=== PATIENT | female | born 1990 | race Caucasian/White ===

== ENCOUNTER 2024-11-27 14:37 | Outpatient (REF) | payer OTHER, SELFPAY ==
[2024-11-27 18:32] LABS: Parathyroid Hormone Intact 56.3 pg/mL (8.7-77.1)
[2024-12-03 13:09] LABS: Calcium, Ionized 5.0 mg/dL (4.7-5.5)
== END 2024-11-27 14:38 | disposition home or self-care (01) ==
LOC: HO.WFDLDS 14:37
PROVIDERS: Visit Provider Physician Assistant
DX: Z00.00 Encounter for general adult medical examination without abnormal findings (principal); E03.9 Hypothyroidism, unspecified; E83.51 Hypocalcemia; Z13.6 Encounter for screening for cardiovascular disorders
CPT/HCPCS: 36415; 82306; 82330; 83970

== ENCOUNTER 2024-12-03 09:25 | Outpatient (REF) | payer OTHER, SELFPAY ==
--- NOTE | ~2024-12-03 | FL_ITS ---
EXAMINATION: XR BARIUM SWALLOW CLINICAL INFORMATION: Dysphonia, swelling, mass and lump right side of the neck history of Patricia's disease. COMPARISON: None available. TECHNIQUE: Routine upright barium swallow with thick barium and saltine crackers with barium paste was performed. Thin barium was administered in prone lying position. FINDINGS: On oral administration of thick barium in upright views there is normal propagation bolus from the oral cavity through the pharynx, esophagus into stomach. On magnification views and mild wall maneuver the pharynx is distended with no intraluminal filling defect seen within the pharyngeal spaces. Following oral administration of saltine crackers with there are pacer is normal oral mastication and with antegrade propagation of bolus from the oral cavity through the pharynx, esophagus into stomach. No intraluminal filling defect, narrowing or extrinsic compression seen. On placing patient in prone lying and oral administration of thin barium there is good distention of entire esophagus without any obstruction or narrowing. FLUOROSCOPY TIME: 1 minute 37 seconds DOSE AREA PRODUCT: 436 uGy-m2 (microgray-meter squared) FL/FL barium swallow IMPRESSION: Unremarkable barium swallow examination. Electronically signed by: Aubrey Raines MD 12/03/2024 02:15 PM EDT
== END 2024-12-03 09:26 | disposition home or self-care (01) ==
LOC: HO.XRAY 09:25
DX: R49.0 Dysphonia (principal); R22.1 Localized swelling, mass and lump, neck; Z86.39 Personal history of other endocrine, nutritional and metabolic disease
CPT/HCPCS: 74220

== ENCOUNTER → 2024-12-03 09:27 | Outpatient (BNV) | payer OTHER, SELFPAY | PROVIDERS: Visit Provider Radiology Diagnostic Radiology | DX: R49.0 Dysphonia (principal) | CPT/HCPCS: 74246 ==

== ENCOUNTER 2025-01-14 13:06 | Outpatient (REF) | payer OTHER, SELFPAY ==
--- NOTE | ~2025-01-14 | US_ITS ---
EXAMINATION: US THYROID CLINICAL INFORMATION: LUMP SENSATION RT THROAT. COMPARISON: None available. TECHNIQUE: Linear transducer alvarez-scale and color Doppler examination with attention to the region of the thyroid. FINDINGS: Right Thyroid Lobe: 4.9 x 1.5 x 2.3 cm, volume 8.9 mL. Left Thyroid Lobe: 5.2 x 1.2 x 2.1 cm, volume 7.4 mL. Isthmus: 0.6 cm in maximum AP dimension. PARENCHYMA: The gland echotexture is heterogeneous. Thyroid vascularity is increased. RIGHT THYROID LOBE: No nodules. ISTHMUS: No nodules. LEFT THYROID LOBE: No nodules. NODES: No lymphadenopathy is seen in the tissue surrounding the thyroid gland. US/US soft tiss head and/or neck IMPRESSION: Heterogeneous thyroid gland associated with increased vascularity. Electronically signed by: Andreea Mary MD 01/14/2025 03:23 PM EDT
== END 2025-01-14 13:07 | disposition home or self-care (01) ==
LOC: HO.HMGCX 13:06
PROVIDERS: PCP Physician Assistant
DX: R49.0 Dysphonia (principal); R22.1 Localized swelling, mass and lump, neck
CPT/HCPCS: 76536

== ENCOUNTER → 2025-01-14 13:14 | Outpatient (BNV) | payer OTHER, SELFPAY | PROVIDERS: PCP Physician Assistant; Visit Provider Radiology Body Imaging | DX: E07.89 Other specified disorders of thyroid (principal); R09.A2 Foreign body sensation, throat | CPT/HCPCS: 76536 ==

== ENCOUNTER 2025-04-09 08:59 | Outpatient (AMB) | payer OTHER, SELFPAY ==
--- NOTE | 2025-04-09 09:01 | MHC.PC.OV ---
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 She has a hx of hypothyroid Endo: has hashimotos and was treated following the delivery of her 3-year-old son. She has a 3-year-old, soon to be 4-year-old in May and a 1-1/2-year-old daughter. On levothyroxine 50 mcg daily. CV: does get occasional lightheadedness associated with bradycardia. She states that for the last few months she has noticed that she gets lightheaded and it will last about 20 minutes. 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 This coincides with the feeling of being lightheaded and weak. She does have to sit down and rest with this. No family history of heart disease. She states that the symptoms do not appear to be triggered by anything in particular. She states it happens randomly and it does seem to happen a few times a month. No headaches, vision changes or syncope. No chest pain or palpitations. Neuro: Gets intermittent paresthesias in her hands and feet that get better with position changes. She just wants to make sure it is not anything. Denies any persistent numbness, tingling or weakness. No pain in the joints or neck or spine. She states she notices it if she is in a certain position and then if she moves the symptoms go away very quickly. No skin changes with this. Supervisor Extrusion: [facility], [facility] Fam hx: father had t2dm, htn, dementia, hld. Mother hld, etoh abuse hx, adhd, hypothyroid. Sisters hld. Maternal grandmother had breast ca. [facility] Family History (Updated 04/09/25 @ 09:07 by Shantel [facility]) Father Dementia Mother ADHD Alcoholism Other FH: mental illness Substance abuse Social History Housing: House Patient Tobacco Use Status: Never used Tobacco e-Cigarette/Vaping Use: Never Used Second Hand Smoke Exposure: No service: No Current occupational status: employed Current occupation: Nurse Current occupational exposures/hazards: No Cognitive needs: No Hearing needs: No Vision needs: No Questionnaire PHQ-9 Over the last 2 weeks, how often have you been bothered by any of the following problems? 1. Little interest or pleasure in doing things: not at all 2. Feeling down, depressed, or hopeless: not at all 3. Trouble falling or staying asleep, or sleeping too much: not at all 4. Feeling tired or having little energy: several days 5. Poor appetite or overeating: not at all 6. Feeling bad about yourself - or that you are a failure or have let yourself or your family down: not at all 7. Trouble concentrating on things, such as reading the newspaper or watching television: not at all 8. Moving or speaking so slowly that other people could have noticed. Or the opposite - being so fidgety or restless that you have been moving around a lot more than usual: not at all 9. Thoughts that you would be better off or of hurting yourself in some way: not at all Total score: 1 Depression Screening Interpretation: Negative Depression Screening Done: Yes 25852 - PHQ-9 Billing: Yes Source: Developed by Drs. Vinicius Jason, Ada Whitlock, Luis Rebolledo and colleagues, with an educational sanya from [employer]. Thrive Questionnaire I am a: Patient What is your living situation today?: I have a steady place to live Within the past 12 months, did the food you bought not last and you didn't have the money to get more?: Never true Within the past 12 months, did you worry whether your food would run out before you got money to buy more?: Never true Do you have trouble paying for medicines?: No Do you have trouble getting transportation to medical appointments?: No Do you have trouble paying your heating and electricity bill?: No Do you have trouble taking care of your child, family member or friend?: No Do you have trouble with day-to-day activities such as bathing, preparing meals, shopping, managing finances, etc.?: No Are you currently unemployed and looking for a job?: No Are you interested in more education?: No Please select the resources that you would like help with: None Currently or been in a relationship where the following occur: No concerns reported THRIVE Score: 0 AUDIT C Alcohol Use Questionnaire (AUDIT-C) 1. How often do you have a drink containing alcohol?: Monthly or less 2. How many drinks containing alcohol do you have on a typical day when you are drinking?: 1 or 2 3. How often do you have six or more drinks on one occasion?: Never Total Score: 1 ARNOL-7 AMB Questionnaire ARNOL-7 Feeling nervous, anxious, or on edge: 0 = Not at all Not being able to stop or control worryin = Not at all Worrying too much about different things: 0 = Not at all Trouble relaxin = Not at all Being so restless that it is hard to sit still: 0 = Not at all Becoming easily annoyed or irritable: 0 = Not at all Feeling afraid as if something awful might happen: 0 = Not at all Total ARNOL-7 score (0-4 normal; 5-9 mild; 10-14 moderate; 15-21 severe): 0 Source: Developed by Drs. Vinicius Jason, Ada Whitlock, Luis Rebolledo and colleagues, with an educational sanya from [employer]. Physical exam (Primary Care) Vital Signs: Last Vital Signs Temp 98.4 F 04/09/25 09:05 Pulse 87 04/09/25 09:05 Resp 14 04/09/25 09:05 BP 112/68 04/09/25 09:05 Pulse Ox 99 04/09/25 09:05 Oxygen Delivery Method Room Air 04/09/25 09:05 BMI result Body Mass Index 26.4 Tobacco/Smoking Status: Tobacco use Status Tobacco use date assessed 04/09/25 04/09/25 09:10 Patient Tobacco Use Status Never used Tobacco 04/09/25 09:10 e-Cigarette/Vaping Use Never Used 04/09/25 09:10 PHQ-9: PHQ-9 Score PHQ-9: Total score 1 04/09/25 09:29 Depression Screening Interpretation: Negative Currently or been in a relationship where the following occur: No concerns reported Const Orientation/consciousness: patient oriented x3 HENMT Ears: hearing grossly normal bilaterally General nose exam: No nasal polyps present Face and sinus: Yes sinuses nontender Mouth: Normal oral and palatal mucosa present Eyes Pupils: Equal, round and reactive pupils present EOM: EOMs intact bilaterally Neck Neck: Yes full ROM and Yes no lymphadenopathy Thyroid: Thyroid normal Lymphatic: no lymphadenopathy noted Chest Chest palpation & inspection: normal inspection of the chest Resp Auscultation: clear to auscultation bilaterally Cardio Rate: regular rate Rhythm: regular rhythm Heart sounds: S1 normal heart sound present and S2 normal heart sound present Peripheral pulses: Peripheral pulses 2+ throughout GI Other: Soft, nontender Inspection: Yes normal to inspection Palpation (GI): Soft to palpation and Other GI palpation findings present (nontender, no cva tenderness) Auscultation: normoactive bowel sounds Rectal Exam - Female: deferred General: Yes no CVA tenderness Back/Spine/Pelvis Other: Nontender Back: no CVA tenderness Skin General skin exam: no rashes or lesions noted Neuro General: patient oriented x3, gait normal and no focal motor deficits Cranial nerves: Yes Equal, round and reactive pupils present Motor exam (neuro): 5/5 motor strength present throughout Sensory Exam: double simultaneous stimulation for sensation normal Coordination: [id number] test normal and Romberg test negative Extrem General: Yes normal to inspection and Yes full ROM Psych Affect: normal affect Attitude: cooperative Thought process: Normal thought process present Thought content: Normal thought content present Insight: Good insight present (Psych) Judgement: Good judgement present (Psych) Office Procedures EKG Details: EKG today is sinus bradycardia at a rate of 56 beats per minute with nonspecific STT wave abnormalities. No prior study to compare. EKG interpreted myself and Dr. Truong. [id number], Complete Coding Level of Care Code New Pt Level 3 (51822) New Pt Prev Care 18-39yr(27428 Diagnoses Routine general medical examination at health care facility Z00.00 Paresthesias R20.2 Lightheadedness R42 Bradycardia R00.1 Hypothyroid E03.9 CPT Codes EKG - CPT: 87995-[id number], Complete ([id number]) Additional Codes PHQ-9 - 97996 - PHQ-9 Billing: Yes ([id number]) Assessment & Plan Assessment & Plan (1) Routine general medical examination at [facility] care facility: Code(s): Z00.00 - Encounter for general adult medical examination without abnormal findings Plan: reviewed labs ordered f.u in a few months (2) Paresthesias: Code(s): R20.2 - Paresthesia of skin Category: Medical Plan: Patient does appear neurovascularly intact. (3) Lightheadedness: Code(s): R42 - Dizziness and giddiness Category: Medical Plan: Labs ordered Monitor ordered Echo ordered (4) Bradycardia: Code(s): R00.1 - Bradycardia, unspecified Category: Medical Plan: As above (5) Hypothyroid: Code(s): E03.9 - Hypothyroidism, unspecified Category: Medical Plan: tsh ordered continue levothyroxine Orders: Orders Lipid Panel Today R00.1 - Bradycardia, unspecified, R20.2 - Paresthesia of skin, R42 - Dizziness and giddiness, Z00.00 - Encounter for general adult medical examination without abnormal findings, Z01.89 - Encounter for other specified special examinations TSH reflex Free T4 Today R00.1 - Bradycardia, unspecified, R20.2 - Paresthesia of skin, R42 - Dizziness and giddiness, Z00.00 - Encounter for general adult medical examination without abnormal findings, Z01.89 - Encounter for other specified special examinations Microalbumin, Random (w Creat) Today R00.1 - Bradycardia, unspecified, R20.2 - Paresthesia of skin, R42 - Dizziness and giddiness, Z00.00 - Encounter for general adult medical examination without abnormal findings, Z01.89 - Encounter for other specified special examinations Magnesium Today R00.1 - Bradycardia, unspecified, R20.2 - Paresthesia of skin, R42 - Dizziness and giddiness, Z00.00 - Encounter for general adult medical examination without abnormal findings, Z01.89 - Encounter for other specified special examinations Hemoglobin A1c Today R00.1 - Bradycardia, unspecified, R20.2 - Paresthesia of skin, R42 - Dizziness and giddiness, R73.01 - Impaired fasting glucose, Z00.00 - Encounter for general adult medical examination without abnormal findings, Z01.89 - Encounter for other specified special examinations IRON PROFILE Today R00.1 - Bradycardia, unspecified, R20.2 - Paresthesia of skin, R42 - Dizziness and giddiness, Z00.00 - Encounter for general adult medical examination without abnormal findings, Z01.89 - Encounter for other specified special examinations AMB EKG-In Office Today R00.1 - Bradycardia, unspecified, R42 - Dizziness and giddiness Complete Blood Count Auto Diff Today R00.1 - Bradycardia, unspecified, R20.2 - Paresthesia of skin, R42 - Dizziness and giddiness, Z00.00 - Encounter for general adult medical examination without abnormal findings, Z01.89 - Encounter for other specified special examinations Comprehensive Mabie. Panel Fast Today R00.1 - Bradycardia, unspecified, R20.2 - Paresthesia of skin, R42 - Dizziness and giddiness, Z00.00 - Encounter for general adult medical examination without abnormal findings, Z01.89 - Encounter for other specified special examinations UA CC w/rflx Micro + Cult Today R00.1 - Bradycardia, unspecified, R20.2 - Paresthesia of skin, R30.0 - Dysuria, R42 - Dizziness and giddiness, Z00.00 - Encounter for general adult medical examination without abnormal findings, Z01.89 - Encounter for other specified special examinations Vitamin B12 and Folate Today R00.1 - Bradycardia, unspecified, R20.2 - Paresthesia of skin, R42 - Dizziness and giddiness, Z00.00 - Encounter for general adult medical examination without abnormal findings, Z01.89 - Encounter for other specified special examinations Ferritin Today R00.1 - Bradycardia, unspecified, R20.2 - Paresthesia of skin, R42 - Dizziness and giddiness, Z00.00 - Encounter for general adult medical examination without abnormal findings, Z01.89 - Encounter for other specified special examinations
[2025-04-09 09:05] VITALS: BP 112/68; PULSE 87; RESP 14; TEMP 36.9; O2SAT 99; BMI 26.4
== END 2025-04-09 10:00 | disposition home or self-care (01) ==
LOC: HO.HMCFM 09:00
PROVIDERS: PCP Physician Assistant; Visit Provider Physician Assistant
DX: Z00.00 Encounter for general adult medical examination without abnormal findings (principal); R20.2 Paresthesia of skin; R42 Dizziness and giddiness; R00.1 Bradycardia, unspecified; E03.9 Hypothyroidism, unspecified

== ENCOUNTER → 2025-04-09 08:59 | Outpatient (BNVA) | payer OTHER, SELFPAY | PROVIDERS: PCP Physician Assistant; Visit Provider Physician Assistant | DX: Z00.00 Encounter for general adult medical examination without abnormal findings (principal); E06.3 Autoimmune thyroiditis; R42 Dizziness and giddiness; R20.2 Paresthesia of skin; R00.1 Bradycardia, unspecified | CPT/HCPCS: 93005; 96127 ==